=== PATIENT | male | born 1990 | race Caucasian/White ===

== ENCOUNTER 2018-08-10 03:06 | Emergency (ER) | payer OTHER, MEDICAID, SELFPAY ==
[2018-08-10 03:16] VITALS: BP 162/77; PULSE 115; RESP 22; TEMP 37.6; O2SAT 100; BMI 24.4
[2018-08-10] MEDS: ONDANSETRON 4 MG/2 ML INJ IV (03:43)
[2018-08-10] MEDS: SODIUM CHLORIDE 0.9% 1,000 ML 1000 ML IV (03:43)
[2018-08-10 03:53] LABS: Alanine Aminotransferase 61 IU/L (21-72); Albumin 4.7 g/dL (3.5-5.0); Albumin Globulin Ratio 1.4 (1.0-2.8); Alkaline Phosphatase 65 U/L (38-126); Aspartate Aminotransferase 66 IU/L (17-59); BUN Creatinine Ratio 14.4 (6-22); Bilirubin Total 0.5 mg/dL (0.2-1.3); Blood Urea Nitrogen 13 mg/dL (9-20); Calcium 9.6 mg/dL (8.4-10.2); Carbon Dioxide 30 mmol/L (22-32); Chloride 100 mmol/L (98-107); Estimated Glomerular Filt Rate > 60.0 mL/min (>60); Globulin 3.3 g/dL (1.7-4.1); Glucose 100 mg/dL (70-100); HEMOLYSIS 18 (0-50); Potassium 4.2 mmol/L (3.4-5.1); Sodium 141 mmol/L (137-145)
--- NOTE | 2018-08-10 03:54 | ED_ITS ---
HPI - Abdominal Pain General Chief Complaint: Abdominal Pain Stated Complaint: states severe abdominal pain Time Seen by Provider: 08/10/18 03:34 Source: patient Mode of arrival: ambulatory Limitations: no limitations History of Present Illness HPI narrative: Patient states that he has been having nausea and diarrhea on and off for about the last 3 weeks. He states that this started just before he left for a trip to the [facility], immediately followed by a trip to [facility]. Patient states that his symptoms have persisted throughout that time. He states that while in [facility], he was started on penicillin for possible bacterial diarrhea, but this did not seem to help. Patient states that he has been noticing increasing abdominal pain over the last several days, which initially was in the upper quadrants to periumbilical region, but now has moved down to the right lower quadrant. Patient denies fevers, and states that he has had nausea but no vomiting. Patient states he is otherwise healthy. No blood in his stools. No respiratory symptoms. No chest pain or shortness of breath. Patient has mild right lower back pain. No dysuria. No sick contacts. Pain is moderate in nature. Related Data Previous Rx's Medication Instructions Recorded ondansetron 4 mg PO QID PRN #14 tab 08/10/18 Allergies Allergy/AdvReac Type Severity Reaction Status Date / Time No Known Allergies Allergy Uncoded 08/07/18 08:27 Review of Systems Review of Systems All systems reviewed & are unremarkable except as noted in HPI and below Constitutional Denies chills, Denies fever(s), Denies lethargy and Denies weakness Eyes Denies change in vision, Denies eye discharge, Denies irritation and Denies loss of vision ENT Ears, Nose, Mouth, and Throat: Denies change in voice, Denies neck pain and Denies sore throat Cardiovascular Denies chest pain, Denies irregular heart rhythm, Denies lightheadedness, Denies palpitations, Denies dyspnea, Denies dyspnea on exertion and Denies orthopnea Respiratory Denies cough, Denies dyspnea, Denies dyspnea on exertion and Denies wheezing Gastrointestinal Gastrointestinal: Reports abdominal pain, Denies change in bowel habits, Reports diarrhea, Reports nausea and Denies vomiting Genitourinary Denies hematuria, Denies flank pain, Denies urinary incontinence and Denies urinary urgency Musculoskeletal Denies neck pain Integumentary/Breasts Denies pruritus, Denies erythema, Denies rash and Denies wounds Neurologic Denies confusion, Denies loss of vision and Denies weakness Psychiatric Denies anxiety, Denies confusion, Denies depression, Denies homicidal ideation and Denies suicidal ideation Endocrine Denies palpitations Hematologic/Lymphatic Denies easy bruising Allergic/Immunologic Denies wheezing [facility] Medical History Healthy adult (Acute) Surgical History No pertinent past surgical history (Acute) Social History Smoking Status: Current some day smoker Exam Initial Vital Signs Initial Vital Signs: Vital Signs Temperature 99.7 F H 08/10/18 03:16 Pulse Rate 115 H 08/10/18 03:16 Respiratory Rate 22 08/10/18 03:16 Blood Pressure 162/77 H 08/10/18 03:16 Pulse Oximetry 100 08/10/18 03:16 Const General: cooperative and well developed Nutritional Appearance: well nourished Orientation: alert, awake, oriented x3 and not confused HENDC Head: normocephalic and atraumatic Ears: external ears normal Nose: external nose normal and No nasal discharge Face and sinus: face symmetric and No dry mucous membranes Mouth: oral mucosae normal and moist mucous membranes Teeth and gingiva: dentition normal Eyes General: appearance normal, both eyes and all related structures Eyelids: eyelids normal Conjunctivae: conjunctivae normal Sclera: sclerae normal Pupils: PERRL EOM: EOM intact bilaterally Neck Neck: normal visual inspection, trachea midline, No lymphadenopathy, No midline deformity and No JVD Lymphatic: No lymphedema Chest Chest: normal inspection of the chest Resp Effort & Inspection: normal respiratory effort, able to speak in complete sentences, no respiratory distress and no use of accessory muscles Auscultation: clear to auscultation bilaterally, no rales, no rhonchi and no wheezes Cardio Rate: regular rate Rhythm: regular rhythm Heart Sounds: no click, no gallops, no murmurs and no rubs Pulses: normal peripheral pulses GI Inspection: non-distended Palpation: soft, no hepatosplenomegaly, No guarding, No pulsatile mass and tender ( Moderate, right lower quadrant.) Back/Spine/Pelvis Back: CVA tenderness ( Mild) right Cervical Spine: cervical ROM normal and No pain with cervical ROM Thoracic/Lumbar Spine: thoracic and lumbar spine normal to inspection Skin General: no rashes or lesions noted, No jaundice and No petechiae Neuro General: alert, oriented x3, gait normal and no focal motor deficits Speech: speech normal Extrem General: full ROM, no clubbing, cyanosis or edema, no pedal edema and no calf tenderness Psych Appearance: well kempt Mental Status: mental status grossly normal Attitude: cooperative Thought Content: normal and suicidality Judgment: judgment good Course Course Narrative: Patient declined analgesia in the emergency department. He was given a L of 0.9 normal saline, as well as a dose of Zofran. Patient was worked up with CBC, CMP and U/A, followed by CT scan of the abdomen and pelvis. Workup demonstrated a leukocytosis, and mesenteric adenitis. I did discussed the results with the patient. I do feel he is stable for discharge home, and also, I have advised him that he may travel to [place] as he has planned. We have discussed the usual indications for return or the for pursuing it is of further medical assessment and intervention. Orders Ordered: Discontinued Medications Sodium Chloride (Normal Saline 0.9%) 1,000 mls @ 1,000 mls/hr IV BOLUS ONE Stop: 08/10/18 04:33 Last Infusion: 08/10/18 05:11 Dose: 0 mls/hr Admin: 08/10/18 03:43 Dose: 1,000 mls/hr Ondansetron HCl (Zofran) 4 mg IV NOW ONE Stop: 08/10/18 03:35 Last Admin: 08/10/18 03:43 Dose: 4 mg Vital Signs - 8 hr 08/10/18 03:16 Temperature 99.7 F H Pulse Rate 115 H Respiratory Rate 22 Blood Pressure 162/77 H Pulse Oximetry 100 MDM - Abdominal Pain Medical Records Attestation: I reviewed the patient's medical records. Lab Data Attestation: I reviewed the patient's lab results. Result diagrams: 08/10/18 03:20 08/10/18 03:20 Lab Results 08/10/18 08/10/18 08/10/18 Range/Units 03:20 03:20 04:43 WBC 15.1 H (4.5-11.0) X10^3/uL RBC 5.03 (4.5-5.9) X10^6/uL Hgb 15.4 (13.5-17.5) g/dL Hct 44.5 (41-53) % MCV 88.4 (80-100) fL MCH 30.7 (26-34) PG MCHC 34.7 (30-36) % RDW 13.5 (11.6-14.8) % Plt Count 232 (150-400) X10^3/uL Neut % (Auto) 82.3 H (50-75) % Lymph % (Auto) 7.9 L (25-40) % [place] % (Auto) 8.0 (3-14) % Eos % (Auto) 1.4 L (2-4) % Baso % (Auto) 0.4 (0-2) % Neut # (Auto) 50586 H (0278-7856) /uL Sodium 141 (137-145) mmol/L Potassium 4.2 (3.4-5.1) mmol/L Chloride 100 (98-107) mmol/L Carbon Dioxide 30 (22-32) mmol/L BUN 13 (9-20) mg/dL Creatinine 0.90 (0.66-1.25) mg/dL Estimated GFR > 60.0 (>60) mL/min BUN/Creatinine Ratio 14.4 (6-22) Glucose 100 (70-100) mg/dL Calcium 9.6 (8.4-10.2) mg/dL Total Bilirubin 0.5 (0.2-1.3) mg/dL AST 66 H (17-59) IU/L ALT 61 (21-72) IU/L Alkaline Phosphatase 65 (38-126) U/L Total Protein 8.0 (6.3-8.2) g/dL Albumin 4.7 (3.5-5.0) g/dL Globulin 3.3 (1.7-4.1) g/dL Albumin/Globulin Ratio 1.4 (1.0-2.8) Urine Color Yellow Urine Appearance Clear Urine pH 7.0 (4.5-8.0) Ur Specific [place] <=1.005 (1.000-1.035) Urine Protein Negative (Negative) Urine Glucose (UA) Negative (Normal) g/dL Urine Ketones Negative (NEGATIVE) Urine Occult Blood Negative (Negative) Urine Nitrate Negative (Negative) Urine Bilirubin Negative (NEGATIVE) Urine Urobilinogen 0.2 (0.2) E.U./dL Ur Leukocyte Esterase Negative (NEGATIVE) Urine RBC None seen (0-5/HPF) Urine WBC None seen (0-5/HPF) Urine Bacteria None seen (None) Ur Culture Indicated? Cult not indicated Micro UA Comment Microscopic normal Imaging Data CT scan - abdomen: Radiologist's impression: [address] [address] [address] Scan Report Signed Patient: Yemi Allen EMR#: [id number] : 1990Acct:[id number] Age/Sex: 27 / MDate of Service: 08/10/18 Loc: ED Accession Number: [id number] Procedure: CT abdomen pelvis w con Ordering Provider: Kristin Clemons MD PROCEDURE: CT ABDOMEN PELVIS W CON INDICATIONS: RLQ abd pain TECHNIQUE: After the administration of intravenous contrast, 5 mm thick sections acquired from the diaphragms to the symphysis. 5 mm thick coronal and sagittal reformats were performed. For radiation dose reduction, the following was used: automated exposure control, adjustment of mA and/or kV according to patient size. COMPARISON: None. FINDINGS: Image quality: Excellent. ABDOMEN: Lung bases: Lung bases are clear. Heart size is normal. Solid organs: There is a small region of mild focal fatty infiltration in the anterior left hepatic lobe. Gallbladder appears within normal limits without calcified gallstones. Biliary system is non-dilated. Pancreas enhances normally. Spleen is normal in size and enhancement. No adrenal nodules. Kidneys are normal in size and enhancement, without hydronephrosis. Peritoneum and bowel: Stomach, small bowel, and colon loops are normal in caliber and wall thickness. The appendix is normal in appearance. There is colonic diverticulosis without acute diverticulitis. No free fluid or air. Nodes and vessels: No retroperitoneal or mesenteric adenopathy. There are a few mildly prominent mesenteric lymph nodes measuring up to 0.7 cm in short axis with mild hazy fat stranding of the mesentery. The findings like represent a nonspecific inflammatory process such as sclerosing mesenteritis. Aorta and inferior vena cava are normal in caliber. Miscellaneous: No ventral hernias. PELVIS: Genitourinary: Bladder wall thickness is normal. Miscellaneous: No inguinal hernias or adenopathy. Bones: No suspicious bony lesions. No vertebral body compression fractures. IMPRESSION: 1. No evidence of appendicitis. 2. Mild hazy fat stranding of the mesentery with mildly prominent subcentimeter mesenteric lymph nodes. The findings likely represent a nonspecific inflammatory process such as sclerosing mesenteritis. Although the differential for this imaging appearance includes treated lymphoma, this is considered less likely and correlation is recommended with clinical history. Dictated by: Jay Ontiveros M.D. on 08/10/2018 at 8:06 Approved by: Jay Ontiveros M.D. on 08/10/2018 at 8:10 Discharge Plan Departure Patient Disposition: Home Clinical Impression: Acute mesenteric adenitis Discharge Date/Time: 08/10/18 05:25 Interventions: ED Discharge Assessment Last Done: 08/10/18 05:10 Instructions: DI for Abdominal Pain-Adult, DI for Mesenteric Adenitis-Adult Activity Restrictions/Additional Instructions: Your CT scan shows a normal appendix. You have evidence of enlarged lymph nodes along your intestine in the right lower abdomen, and this is the most likely cause of your pain. This will go away on its own in the next several days to a week, and is most likely caused by the same illness that caused your diarrhea. Prescriptions: New ondansetron 4 mg tablet,disintegrating 4 mg PO QID PRN (Reason: nausea and vomiting) Qty: 14 RF: 0
[2018-08-10 03:55] LABS: Add Manual Diff / Slide Review NO; Basophils Percent Auto 0.4 % (0-2); Eosinophils Percent Auto 1.4 % (2-4); Hematocrit 44.5 % (41-53); Hemoglobin 15.4 g/dL (13.5-17.5); Lymphocytes Percent Auto 7.9 % (25-40); Mean Corpuscular HGB Conc 34.7 % (30-36); Mean Corpuscular Hemoglobin 30.7 PG (26-34); Mean Corpuscular Volume 88.4 fL (80-100); Neutrophils Absolute Auto 12400 /uL (3000-5900); Neutrophils Percent Auto 82.3 % (50-75); Platelet Count 232 X10^3/uL (150-400); Red Blood Cell Count 5.03 X10^6/uL (4.5-5.9); Red Cell Distribution Width 13.5 % (11.6-14.8); White Blood Cell Count 15.1 X10^3/uL (4.5-11.0)
[2018-08-10 03:58] VITALS: BP 137/82; PULSE 86; O2SAT 100
--- NOTE | 2018-08-10 04:15 | DI.CT.S_ITS ---
PROCEDURE: CT ABDOMEN PELVIS W CON INDICATIONS: RLQ abd pain TECHNIQUE: After the administration of intravenous contrast, 5 mm thick sections acquired from the diaphragms to the symphysis. 5 mm thick coronal and sagittal reformats were performed. For radiation dose reduction, the following was used: automated exposure control, adjustment of mA and/or kV according to patient size. COMPARISON: None. FINDINGS: Image quality: Excellent. ABDOMEN: Lung bases: Lung bases are clear. Heart size is normal. Solid organs: There is a small region of mild focal fatty infiltration in the anterior left hepatic lobe. Gallbladder appears within normal limits without calcified gallstones. Biliary system is non-dilated. Pancreas enhances normally. Spleen is normal in size and enhancement. No adrenal nodules. Kidneys are normal in size and enhancement, without hydronephrosis. Peritoneum and bowel: Stomach, small bowel, and colon loops are normal in caliber and wall thickness. The appendix is normal in appearance. There is colonic diverticulosis without acute diverticulitis. No free fluid or air. Nodes and vessels: No retroperitoneal or mesenteric adenopathy. There are a few mildly prominent mesenteric lymph nodes measuring up to 0.7 cm in short axis with mild hazy fat stranding of the mesentery. The findings like represent a nonspecific inflammatory process such as sclerosing mesenteritis. Aorta and inferior vena cava are normal in caliber. Miscellaneous: No ventral hernias. PELVIS: Genitourinary: Bladder wall thickness is normal. Miscellaneous: No inguinal hernias or adenopathy. Bones: No suspicious bony lesions. No vertebral body compression fractures. IMPRESSION: 1. No evidence of appendicitis. 2. Mild hazy fat stranding of the mesentery with mildly prominent subcentimeter mesenteric lymph nodes. The findings likely represent a nonspecific inflammatory process such as sclerosing mesenteritis. Although the differential for this imaging appearance includes treated lymphoma, this is considered less likely and correlation is recommended with clinical history. Dictated by: Jay Ontiveros M.D. on 08/10/2018 at 8:06 Approved by: Jay Ontiveros M.D. on 08/10/2018 at 8:10
[2018-08-10 04:22] VITALS: BP 117/74; PULSE 78; O2SAT 99
[2018-08-10 04:55] VITALS: BP 127/56; PULSE 87; O2SAT 100
[2018-08-10 05:01] LABS: Bacteria Urine None Seen; RBC Urine None Seen (0-5/HPF); WBC Urine None Seen (0-5/HPF)
[2018-08-10 05:02] LABS: Appearance Urine UA CLEAR; Bilirubin Urine UA NEGATIVE (NEGATIVE); Color Urine UA YELLOW; Glucose Urine UA NEGATIVE (Normal); Ketones Urine UA NEGATIVE (NEGATIVE); Leukocyte Esterase Urine UA NEGATIVE (NEGATIVE); Nitrite Urine UA NEGATIVE (Negative); Occult Blood Urine UA NEGATIVE (Negative); Protein Urine UA NEGATIVE (Negative); Specific Gravity Urine UA <=1.005 (1.000-1.035); Urobilinogen Urine UA 0.2 E.U./dL (0.2)
[2018-08-10 05:10] VITALS: BP 128/66; PULSE 78; RESP 18; O2SAT 99
[2018-08-10 05:19] LABS: Culture Indicated Urine Cult Not Indicated; Urine Comments Microscopic Normal
== END 2018-08-10 05:25 | disposition home or self-care (01) ==
PROVIDERS: Emergency Provider Emergency Medicine
DX: I88.0 Nonspecific mesenteric lymphadenitis (principal)
CPT/HCPCS: 36591; 74177; 80053; 81001; 85025; 96361; 96374; 99283; 99285; J2405; Q9967

== ENCOUNTER → 2019-04-14 09:51 | Outpatient (CLI) | payer OTHER, MEDICAID, SELFPAY ==
--- NOTE | 2019-04-14 09:52 | DI.US.S_ITS ---
PROCEDURE: US EXTREMELY NONVASC UPPER RT INDICATIONS: tender mass right side back distal to scapula TECHNIQUE: Real-time scanning was performed of the area of current clinical concern at the reported soft tissue region of palpable masslike structure to the right of the spine beneath the scapula, with image documentation. COMPARISON: None. FINDINGS: In the area of current clinical concern no mass or inflammatory change is found. IMPRESSION: No lesion identified by ultrasound. Please note that MR scanning without and with contrast may detect a structure such as a lipoma not detectable by ultrasound. Dictated by: Mannie Cook M.D. on 04/14/2019 at 11:48 Approved by: Mannie Cook M.D. on 04/14/2019 at 11:49
== END ==
PROVIDERS: Visit Provider Physician Assistant
DX: R22.2 Localized swelling, mass and lump, trunk (principal)
CPT/HCPCS: 76882

== ENCOUNTER → 2019-08-27 15:42 | Outpatient (CLI) | payer OTHER, MEDICAID, SELFPAY ==
--- NOTE | 2019-08-27 | DI.CT.S_ITS ---
PROCEDURE: CT SOFT TISSUE NECK W CON INDICATIONS: lump on left jaw TECHNIQUE: After the administration of intravenous contrast, 3.0 mm axial sections acquired from the sella to the aortic arch. Additional oblique axial 3.0 mm sections acquired through the pharynx. 3 mm thick coronal and sagittal reformats were generated. For radiation dose reduction, the following was used: automated exposure control. COMPARISON: None. FINDINGS: Image quality: Excellent. Lymph nodes: No enlarged lymph nodes seen throughout the neck. Vessels: Visualized vasculature appears patent. Neck spaces: The oropharynx, nasopharynx, and pharynx demonstrate no mucosal lesions. The vocal cords, false vocal cords, pyriform sinuses, epiglottis, vallecula, and tongue base all appear normal. Extramucosal spaces appear unremarkable. Glands: There is a small, approximately 1.2 cm in diameter mildly enhancing rounded nodule in the superficial lobe of the left parotid gland deep to metallic BB localizer placed over the clinically palpable lesion. The left parotid mass has relatively well-defined margins. No edema or inflammation noted adjacent to the lesion. The right parotid and submandibular glands appear normal. Thyroid gland is normal. Miscellaneous: Visualized brain and orbits appear normal. Lung apices appear clear. Superficial soft tissues appear normal. Bones: No suspicious bony lesions. Visualized sinuses and mastoids appear unremarkable. IMPRESSION: 1. 1.2 cm mildly enhancing, nodule in the superficial lobe of the left parotid gland corresponds to palpable lesion. Finding is nonspecific and may represent benign etiologies including pleomorphic adenoma or Warthin's tumor versus malignancy. Decision to biopsy should be based on clinical assessment. 2. No lymphadenopathy based on size criteria. Dictated by: Leanne Su MD, PhD on 08/27/2019 at 17:01 Approved by: Leanne Su MD, PhD on 08/27/2019 at 17:06
== END ==
PROVIDERS: PCP Physician Assistant; Visit Provider Otolaryngology
DX: K11.9 Disease of salivary gland, unspecified (principal)
CPT/HCPCS: 70491